=== PATIENT | male | born 1960 | race Caucasian/White ===

== ENCOUNTER 2020-09-19 12:43 | Emergency (ER) | payer BC, OTHER ==
[2020-09-19] MEDS ORDERED: Sodium Chloride 0.9% 10 ML Syringe FLUSH PRN (13:02)
[2020-09-19] MEDS ORDERED: Ondansetron 4 MG/2 ML SDV IVPUSH ONE ×2 (13:03→15:07)
[2020-09-19] MEDS ORDERED: Sodium Chloride 0.9% 1,000 ML IV SCH (13:15)
--- NOTE | 2020-09-19 14:04 | CR ---
INDICATION: Cough, dyspnea, COVID positive one week ago. CHEST ONE VIEW: Portable AP upright view of the chest 09/19/2020 revealed an appearance of patchy infiltration bilaterally in the mid to lower lung saini, most prominent in the right upper middle lung field and left lower middle lung field and lung base. The appearance would be compatible with COVID-19, but should be correlated clinically. The heart and mediastinum are unremarkable. MTDD
--- NOTE | 2020-09-19 15:00 | EDM.PDOC ---
ED HPI GENERAL MEDICAL PROBLEM - General Chief Complaint: Gastrointestinal Problem Stated Complaint: COVID Time Seen by Provider: 09/19/20 12:55 Source of Information: Reports: Patient History Limitations: Reports: No Limitations - History of Present Illness INITIAL COMMENTS - FREE TEXT/NARRATIVE: Patient presented to the ED because poor appetite and weakness since he was diagnosed with Covid 1 week ago. Denies having any fever or chills but have occasional dyspnea. He also c/o nausea and diarrhea. generalized and chronic back pain Pain Score (Numeric/FACES): 6 - Related Data Allergies Allergy/AdvReac Type Severity Reaction Status Date / Time bupropion HCl Allergy Mild unknown Verified 09/19/20 12:53 [From Wellbutrin] Home Meds: Home Meds Citalopram Hydrobromide [Celexa] 40 mg PO DAILY 09/19/20 [History] Meloxicam [Mobic] 15 mg PO DAILY 09/19/20 [History] Ondansetron [Zofran ODT] 4 mg PO Q4H PRN #7 tab.dis 09/19/20 [Rx] Venlafaxine HCl [Venlafaxine ER] 150 mg PO DAILY 09/19/20 [History] amLODIPine Besylate [Norvasc] 5 mg PO DAILY 09/19/20 [History] atorvaSTATin [Lipitor] 20 mg PO DAILY 09/19/20 [History] ED ROS GENERAL - Review of Systems Review Of Systems: See Below Constitutional: Reports: No Symptoms HEENT: Reports: No Symptoms Respiratory: Reports: Cough Cardiovascular: Reports: No Symptoms Endocrine: Reports: No Symptoms GI/Abdominal: Reports: Diarrhea, Decreased Appetite, Nausea. Denies: Abdominal Pain : Reports: No Symptoms Musculoskeletal: Reports: No Symptoms Skin: Reports: No Symptoms ED EXAM, GENERAL - Physical Exam Exam: See Below Exam Limited By: No Limitations General Appearance: Alert, No Apparent Distress Ears: Normal External Exam, Normal Canal, Hearing Grossly Normal Nose: Normal Inspection, Normal Mucosa, No Blood Throat/Mouth: Normal Inspection, Normal Lips, Normal Teeth, Normal Gums Head: Atraumatic, Normocephalic Neck: Normal Inspection, Supple, Non-Tender, Full Range of Motion Respiratory/Chest: No Respiratory Distress, Lungs Clear, Normal Breath Sounds Cardiovascular: Normal Peripheral Pulses, Regular Rate, Rhythm, No Edema, No Gallop GI/Abdominal: Normal Bowel Sounds, Soft, Non-Tender, No Organomegaly Back Exam: Normal Inspection, Full Range of Motion Extremities: Normal Inspection, Normal Range of Motion Neurological: Alert, Oriented, CN II-XII Intact Course - Vital Signs Text/Narrative:: Labs reviewed and discussed w/ patient NS 1 L bolus Zofran 4 mg IV x1 Last Recorded V/S: Last Vital Signs Temp 37.1 C 09/19/20 12:50 Pulse 60 09/19/20 15:00 Resp 18 09/19/20 15:00 BP 127/61 09/19/20 15:00 Pulse Ox 96 09/19/20 15:00 - Orders/Labs/Meds Orders: Active Orders 24 hr Category Date Time Status Saline Lock Insert [OM.PC] Routine Oth 09/19/20 13:02 Ordered Labs: Laboratory Tests 09/19/20 09/19/20 Range/Units 13:25 13:25 WBC 5.7 (4.5-12.0) X10-3/uL RBC 4.77 (4.30-5.75) x10(6)uL Hgb 14.7 (13.5-17.8) g/dL Hct 43.1 (30.0-51.3) % MCV 90.5 (80-96) fL MCH 30.9 (27.7-33.6) pg MCHC 34.2 (32.2-35.4) g/dL RDW 12.1 (11.5-15.5) % Plt Count 165 (125-369) X10(3)uL MPV 9.7 (7.4-10.4) fL Add Manual Diff Yes Neutrophils % (Manual) 84 H (46-82) % Lymphocytes % (Manual) 10 L (13-37) % Monocytes % (Manual) 6 (4-12) % Sodium 140 (135-145) mmol/L Potassium 3.9 (3.5-5.3) mmol/L Chloride 100 (100-110) mmol/L Carbon Dioxide 28 (21-32) mmol/L BUN 51 H (7-18) mg/dL Creatinine 1.6 H (0.70-1.30) mg/dL Est Cr Clr Drug Dosing TNP Estimated GFR (MDRD) 44 L (>60) BUN/Creatinine Ratio 31.9 H (9-20) Glucose 108 (80-116) mg/dL Calcium 8.7 (8.6-10.2) mg/dL Total Bilirubin 0.6 (0.1-1.3) mg/dL AST 56 H (5-25) IU/L ALT 45 H (12-36) U/L Alkaline Phosphatase 60 (56-112) IU/L Total Protein 7.1 (6.0-8.0) g/dL Albumin 3.2 (3.2-4.6) g/dL Globulin 3.9 g/dL Albumin/Globulin Ratio 0.8 Meds: Medications Discontinued Medications Generic Name Dose Route Start Last Admin Trade Name Freq PRN Reason Stop Dose Admin Sodium Chloride 1,000 mls @ 999 mls/hr 09/19/20 13:15 09/19/20 14:00 Normal Saline IV 999 mls/hr ASDIRECTED COLLEEN Administration Ondansetron HCl 4 mg 09/19/20 13:03 09/19/20 14:00 Zofran IVPUSH 09/19/20 13:04 4 mg ONETIME ONE Administration Ondansetron HCl 4 mg 09/19/20 15:07 09/19/20 15:15 Zofran IVPUSH 09/19/20 15:08 4 mg ONETIME ONE Administration Sodium Chloride 10 ml 09/19/20 13:02 09/19/20 13:55 Saline Flush FLUSH 10 ml ASDIRECTED PRN Administration Keep Vein Open Departure - Departure Time of Disposition: 15:00 Disposition: Home, Self-Care 01 Condition: Good Clinical Impression: Dehydration, REILLY (acute kidney injury) - Discharge Information Prescriptions: Ondansetron [Zofran ODT] 4 mg PO Q4H PRN #7 tab.dis PRN Reason: Nausea Instructions: Acute Kidney Injury, Adult, Dehydration, Adult, [id number], Nausea and Vomiting, Adult Referrals: PCP,None [Primary Care Provider] - Forms: ED Department Discharge Additional Instructions: Please read discharge instructions on dehydration and acute kidney injury Increase fluids, drink at least 2-3 liters of water a day Zofran ODT 4 mg every 4 hours as needed for nausea Follow up as needed Sepsis Event Note (ED) - Evaluation Sepsis Screening Result: No Definite Risk - Focused Exam Vital Signs: Vital Signs Temp Pulse Resp BP Pulse Ox 09/19/20 15:00 60 18 127/61 96 10/29/20 13:45 60 16 122/67 96 09/19/20 12:50 37.1 C 87 18 134/71 95 - My Orders Last 24 Hours: My Active Orders 09/19/20 13:02 Saline Lock Insert [OM.PC] Routine - Assessment/Plan Last 24 Hours: My Active Orders 09/19/20 13:02 Saline Lock Insert [OM.PC] Routine
== END 2020-09-19 15:20 | disposition home or self-care (01) ==
LOC: FB.ED 12:43
DX: N17.9 Acute kidney failure, unspecified (principal); E86.0 Dehydration; Z88.8 Allergy status to other drugs, medicaments and biological substances; Z79.899 Other long term (current) drug therapy
CPT/HCPCS: 36410; 36415; 71045; 80053; 85025; 96374; 96376; 99285; J2405; J7030

== ENCOUNTER 2020-11-05 11:43 | Emergency (ER) | payer BC ==
[2020-11-05] MEDS ORDERED: Ketorolac 30 MG/ML SDV IVPUSH ONE (12:37)
[2020-11-05] MEDS ORDERED: Furosemide 40 MG/4 ML VIAL IVPUSH ONE (13:17)
--- NOTE | 2020-11-05 13:33 | EDM.PDOC ---
ED HPI GENERAL MEDICAL PROBLEM - General Chief Complaint: Cardiovascular Problem Stated Complaint: CHEST ISSUES Time Seen by Provider: 11/05/20 12:10 Source of Information: Reports: Patient History Limitations: Reports: No Limitations - History of Present Illness INITIAL COMMENTS - FREE TEXT/NARRATIVE: Patient was referred to the ED from [facility] because of dyspnea, and upper back pain radiating to the left arm. An EKG was done in the clinic and it showed diffuse T wave inversion not seen in previous EKG. Patient was diagnosed with Covid on 09/23/2020. There is no recent cough,cold,fever,chills. 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 - Related Data Allergies Allergy/AdvReac Type Severity Reaction Status Date / Time bupropion HCl Allergy Mild Rash Verified 11/05/20 11:48 [From Wellbutrin] lisinopril Allergy Cough Verified 11/05/20 11:48 Home Meds: Home Meds Meloxicam [Mobic] 15 mg PO DAILY PRN 09/19/20 [History] Ondansetron [Zofran ODT] 4 mg PO Q4H PRN #7 tab.dis 09/19/20 [Rx] Venlafaxine HCl [Venlafaxine ER] 150 mg PO DAILY 09/19/20 [History] amLODIPine Besylate [Norvasc] 5 mg PO DAILY 09/19/20 [History] atorvaSTATin [Lipitor] 20 mg PO DAILY 09/19/20 [History] DULoxetine [Cymbalta] 60 mg PO DAILY 11/05/20 [History] Furosemide [Lasix] 40 mg PO DAILY #30 tab 11/05/20 [Rx] Past Medical History HEENT History: Reports: None Cardiovascular History: Reports: High Cholesterol, Hypertension Respiratory History: Reports: Other (See Below) Other Respiratory History: covid end of august 2020 Musculoskeletal History: Reports: Back Pain, Chronic Psychiatric History: Reports: Depression Endocrine/Metabolic History: Reports: Obesity/BMI 30+ - Past Surgical History HEENT Surgical History: Reports: None, Tonsillectomy Cardiovascular Surgical History: Reports: None Neurological Surgical History: Reports: Laminectomy Musculoskeletal Surgical History: Reports: Other (See Below) Other Musculoskeletal Surgeries/Procedures:: LEFT WRIST SURGERY Social & Family History - Tobacco Use Tobacco Use Status *Q: Former Tobacco User Used Tobacco, but Quit: Yes Month/Year Tobacco Last Used: QUIT GREATER THAN 10 YEARS AGO - Caffeine Use Caffeine Use: Reports: Coffee - Alcohol Use Days Per Week of Alcohol Use: 7 Number of Drinks Per Day: 4 Total Drinks Per Week: 28 - Recreational Drug Use Recreational Drug Use: No ED ROS GENERAL - Review of Systems Review Of Systems: See Below Constitutional: Reports: No Symptoms HEENT: Reports: No Symptoms Respiratory: Reports: Shortness of Breath Cardiovascular: Reports: Chest Pain Endocrine: Reports: No Symptoms GI/Abdominal: Reports: No Symptoms : Reports: No Symptoms Musculoskeletal: Reports: No Symptoms Skin: Reports: No Symptoms Neurological: Reports: No Symptoms Psychiatric: Reports: No Symptoms Hematologic/Lymphatic: Reports: No Symptoms ED EXAM, GENERAL - Physical Exam Exam: See Below Exam Limited By: No Limitations General Appearance: Alert, No Apparent Distress Nose: Normal Inspection, Normal Mucosa Throat/Mouth: Normal Inspection, Normal Lips, Normal Teeth Head: Atraumatic, Normocephalic Neck: Normal Inspection, Supple, Non-Tender Respiratory/Chest: No Respiratory Distress, Lungs Clear, Normal Breath Sounds Cardiovascular: Normal Peripheral Pulses, Regular Rate, Rhythm, No Edema GI/Abdominal: Normal Bowel Sounds, Soft, Non-Tender Back Exam: Normal Inspection, Full Range of Motion Course - Vital Signs Text/Narrative:: Labs/EKG/CXR was discussed with patient Pro [id number] Trop- neg x 2 Cardiology consult was done with Dr Gifford who recommended for patient to start taking lasix 40 mg daily and will follow up with him in a week . Last Recorded V/S: Last Vital Signs Temp 37.1 C 11/05/20 12:03 Pulse 67 11/05/20 12:03 Resp 16 11/05/20 12:03 BP 158/85 H 11/05/20 12:03 Pulse Ox 99 11/05/20 12:03 - Orders/Labs/Meds Labs: Laboratory Tests 11/05/20 11/05/20 11/05/20 Range/Units 12:25 12:25 12:25 WBC 6.8 (3.2-10.1) x10-3/uL RBC 4.24 (3.90-5.90) x10(6)uL Hgb 12.7 L (12.9-17.7) g/dL Hct 38.2 L (38.3-50.1) % MCV 90.0 (80.8-98.7) fL MCH 29.8 (27.0-33.3) pg MCHC 33.1 (28.7-35.3) g/dL RDW 13.8 (12.4-15.0) % Plt Count 190 (117-477) x10(3)uL MPV 9.6 (6.7-11.0) fL Add Manual Diff Yes Neutrophils % (Manual) 68 (46-82) % Lymphocytes % (Manual) 16 (13-37) % Monocytes % (Manual) 12 (4-12) % Eosinophils % (Manual) 4 (0-5) % PT 10.2 (9.0-11.1) sec INR 0.94 L (1.00-1.24) APTT 25.2 (24.4-33.2) SECONDS Sodium 143 (135-145) mmol/L Potassium 4.0 (3.5-5.3) mmol/L Chloride 106 D (100-110) mmol/L Carbon Dioxide 26 (21-32) mmol/L BUN 18 D (7-18) mg/dL Creatinine 0.7 (0.70-1.30) mg/dL Est Cr Clr Drug Dosing 115.87 mL/min Estimated GFR (MDRD) > 60 (>60) BUN/Creatinine Ratio 25.7 H (9-20) Glucose 99 (80-116) mg/dL Calcium 8.9 (8.6-10.2) mg/dL Total Bilirubin 0.4 (0.1-1.3) mg/dL AST 16 D (5-25) IU/L ALT 29 D (12-36) U/L Alkaline Phosphatase 71 (56-112) IU/L Troponin I (4.0-60.3) pg/mL NT-Pro-B Natriuret Pep (<=125) pg/mL Total Protein 6.5 (6.0-8.0) g/dL Albumin 3.5 (3.2-4.6) g/dL Globulin 3.0 g/dL Albumin/Globulin Ratio 1.2 11/05/20 11/05/20 Range/Units 12:25 14:00 WBC (3.2-10.1) x10-3/uL RBC (3.90-5.90) x10(6)uL Hgb (12.9-17.7) g/dL Hct (38.3-50.1) % MCV (80.8-98.7) fL MCH (27.0-33.3) pg MCHC (28.7-35.3) g/dL RDW (12.4-15.0) % Plt Count (117-477) x10(3)uL MPV (6.7-11.0) fL Add Manual Diff Neutrophils % (Manual) (46-82) % Lymphocytes % (Manual) (13-37) % Monocytes % (Manual) (4-12) % Eosinophils % (Manual) (0-5) % PT (9.0-11.1) sec INR (1.00-1.24) APTT (24.4-33.2) SECONDS Sodium (135-145) mmol/L Potassium (3.5-5.3) mmol/L Chloride (100-110) mmol/L Carbon Dioxide (21-32) mmol/L BUN (7-18) mg/dL Creatinine (0.70-1.30) mg/dL Est Cr Clr Drug Dosing mL/min Estimated GFR (MDRD) (>60) BUN/Creatinine Ratio (9-20) Glucose (80-116) mg/dL Calcium (8.6-10.2) mg/dL Total Bilirubin (0.1-1.3) mg/dL AST (5-25) IU/L ALT (12-36) U/L Alkaline Phosphatase (56-112) IU/L Troponin I 19.2 18.9 (4.0-60.3) pg/mL NT-Pro-B Natriuret Pep 1463 H* (<=125) pg/mL Total Protein (6.0-8.0) g/dL Albumin (3.2-4.6) g/dL Globulin g/dL Albumin/Globulin Ratio Meds: Medications Discontinued Medications Generic Name Dose Route Start Last Admin Trade Name Freq PRN Reason Stop Dose Admin Furosemide 40 mg 11/05/20 13:17 11/05/20 13:22 Lasix IVPUSH 11/05/20 13:18 40 mg NOW ONE Administration Ketorolac Tromethamine 30 mg 11/05/20 12:37 11/05/20 12:41 Toradol IVPUSH 11/05/20 12:38 30 mg ONETIME ONE Administration Departure - Departure Time of Disposition: 15:00 Disposition: Home, Self-Care 01 Condition: Good Clinical Impression: Chest pain, CHF (congestive heart failure) Prescriptions: Furosemide [Lasix] 40 mg PO DAILY #30 tab Instructions: Heart Failure, Self Care, [id number] Referrals: Sen Harden MD [Primary Care Provider] - Forms: ED Department Discharge Additional Instructions: Please read discharge instructions on CHF Low salt diet Take lasix 40 mg daily Call [phone] to schedule an appointment to be sen by a manager [employer] [facility] Sepsis Event Note (ED) - Evaluation Sepsis Screening Result: No Definite Risk - Focused Exam Vital Signs: Vital Signs Temp Pulse Resp BP Pulse Ox 11/05/20 12:03 37.1 C 67 16 158/85 H 99
== END 2020-11-05 14:50 | disposition home or self-care (01) ==
LOC: FB.ED 11:43
DX: I11.0 Hypertensive heart disease with heart failure (principal); I50.9 Heart failure, unspecified; E78.00 Pure hypercholesterolemia, unspecified; F32.9 Major depressive disorder, single episode, unspecified; E66.9 Obesity, unspecified; Z87.891 Personal history of nicotine dependence; Z68.29 Body mass index [BMI] 29.0-29.9, adult; Z99.81 Dependence on supplemental oxygen; Z79.899 Other long term (current) drug therapy; Z88.8 Allergy status to other drugs, medicaments and biological substances
CPT/HCPCS: 36415; 80053; 83880; 84484; 85025; 85610; 85730; 96374; 96375; 99284-25; J1885; J1940